=== PATIENT | female | born 1960 | race Caucasian/White ===

== ENCOUNTER 2019-10-19 20:06 | Emergency (ER) | payer BC, OTHER ==
[~2019-10-19] VITALS: Ht 165.1 cm; Wt 78.0 kg
[~2019-10-19 20:06] MED LIST: CYCL10TA2 PO; LORA10TA3 PO; OLME1TAB21 PO; OMEP40CA45 PO; OXYC1TAB22 PO; PROM25TA10 PO; RANI-376 PO; VALS1TAB3 PO
--- NOTE | 2019-10-19 20:32 | PHYS DOC ---
Past Medical History Past Medical History: GERD Past Surgical History: , Hysterectomy, Other Additional Past Surgical Histo: left arm and elbow surgery, right wrist, back Smoking Status: Current Every Day Smoker Alcohol Use: None Drug Use: None General Adult EDM: Chief Complaint: MECHANICAL FALL HPI: HPI: Patient is a 59 year old presents [facility] by EMS as a trauma alert. Patient was found by significant under at the bottom of stairs. Patient was found unconscious. Patient admits to drinking. She does not recall what happened. states it appears patient walked up 2 flights of steps and fell back hit her head on the concrete floor. On exam patient is currently alert and oriented x4. Again she does not recall what happened. She admits to drinking today. Patient has 4 cm laceration to the posterior scalp. She has some C-spine and thoracic midline tenderness. There are no obvious deformities of bilateral upper and lower extremities. There is a contusion on patient's left hand. Review of Systems: Review of Systems: Constitutional: Denies fever or chills. [] Eyes: Denies change in visual acuity. [] HENT: Denies nasal congestion or sore throat. [] Respiratory: Denies cough or shortness of breath. [] Cardiovascular: Denies chest pain or edema. [] GI: Denies abdominal pain, nausea, vomiting, bloody stools or diarrhea. [] : Denies dysuria. [] Musculoskeletal: Positive back pain positive hand pain Integument: Denies rash. [] Positive laceration positive contusion Neurologic: POSITIVE headache, deneis focal weakness or sensory changes. [] Endocrine: Denies polyuria or polydipsia. [] Lymphatic: Denies swollen glands. [] Psychiatric: Denies depression or anxiety. [] Heart Score: Risk Factors: Risk Factors: DM, Current or recent (<one month) smoker, HTN, HLP, family history of CAD, obesity. Risk Scores: Score 0 - 3: 2.5% MACE over next 6 weeks - Discharge Home Score 4 - 6: 20.3% MACE over next 6 weeks - Admit for Clinical Observation Score 7 - 10: 72.7% MACE over next 6 weeks - Early Invasive Strategies Allergies: Allergies: Allergies Coded Allergies Type Severity Reaction Last Updated Verified levofloxacin Allergy Severe face turned red and skin peeled off 06/07/15 Yes pepper Allergy Intermediate Nausea and Vomiting 06/07/15 Yes codeine Adverse Reaction Intermediate N/V 06/07/15 Yes Physical Exam: PE: Constitutional: Well developed, well nourished, no acute distress, non-toxic appearance. [] HENT: Normocephalic, contusion/laceration posterior [id number] laceration, bilateral external ears normal, nose normal, dried blood mouth and teeth, patient states teeth align properly, no active oral bleeding, no source found [] Eyes: EOMI, conjunctiva normal, no discharge. [] Neck: Normal range of motion, no tenderness, supple, tender to palpation c5-c6 mind line Cardiovascular:Heart rate regular rhythm, Lungs & Thorax: no respiratory distress, no chest wall pain Abdomen: abdomen soft, no bound or guarding Skin: Ecchymosis right hand over, laceration posterior scalp Back: tenderness midline T2-4 Extremities: No tenderness, no cyanosis, no clubbing, ROM intact, no edema. [] Neurologic: Alert and oriented X 3, normal motor function, normal sensory function, no focal deficits noted. [] Psychologic: Affect normal, judgement normal, mood normal. [] EKG: EKG: [] Radiology/Procedures: Radiology/Procedures: [] Impression: Left hand x-rays 3 views HISTORY: Left hand injury and bruising. FINDINGS: No fracture. No dislocation. Small bone island at the base of the fifth distal phalanx. Soft tissues are unremarkable. IMPRESSION: No acute osseous injury. Electronically signed by: Nabeel Stringer MD (10/19/2019 9:37 PM) [facility] [place] Exam: CT head, cervical and thoracic spine INDICATION: Fall downstairs TECHNIQUE: Sequential axial images through the head, cervical and thoracic spine were obtained without the administration of IV contrast. Comparisons: None FINDINGS: Head: No focal parenchymal lesion or hemorrhage is identified. There is no midline shift or sulcal effacement. No acute vascular territory infarction is identified. Pandey-white distinction is preserved. The ventricular system is within normal limits without compression hydrocephalus. The basal cisterns are well maintained. Extra cranial soft tissue scalp contusion/hematoma in the right occipital region without underlying osseous or intracranial abnormality. The visualized portions of the paranasal sinuses and mastoid air cells are well-pneumatized. No acute fractures. Cervical spine: Vertebral body heights and alignment are well-maintained. Fracture through the cervical spine is not identified. Mild degenerative disc disease greatest at C5-C6. Mild bilateral arthropathy is noted predominantly at C3-C4. Visualized paraspinal soft tissues are unremarkable. Thoracic spine: Vertebral body heights and alignment are well-maintained. Fracture to the thoracic spine is not identified. No significant spondylotic change in the thoracic spine. Visualized soft tissues are unremarkable. IMPRESSION: 1. Extra cranial soft tissue contusion/hematoma in the right occipital region without underlying osseous or intracranial abnormality. 2. Negative CT C-spine for acute traumatic injury. 3. Negative CT thoracic spine for acute traumatic injury. Exposure: One or more of the following in the visualized dose reduction techniques were utilized for this examination: 1. Automated exposure control 2. Adjustment of the MA and/or KV according to patient size Use of iterative of reconstructive technique Course & Med Decision Making: Course & Med Decision Making Pertinent Labs and Imaging studies reviewed. (See chart for details) [] Patient was evaluated for chief complaint. Work-up consisted of laboratory analysis and radiologic imaging. Results reviewed and discussed with patient and family. CT head CT cervical spine CT thoracic spine and x-ray of hand negative for acute traumatic injury. Patient with 4 cm laceration posterior scalp. Wound was clean breana placed total of 7 breana. Wound was cleaned with normal saline and hydrogen peroxide. Dragon Disclaimer: Dragon Disclaimer: This electronic medical record was generated, in whole or in part, using a voice recognition dictation system. Departure Departure Impression: Primary Impression: Alcohol intoxication Additional Impressions: Fall Head injury Disposition: 01 HOME, SELF-CARE Condition: STABLE Referrals: SAMANTA MCCOY MD (PCP) Patient Instructions: Alcohol Intoxication, Facial or Scalp Contusion, Head Injury, Adult, Laceration Care, Adult Scripts Tramadol Hcl (ULTRAM) 50 Mg Tablet 1 TAB PO PRN TID PRN for pain MDD 3 Tablet(s), #20 TAB 0 Refills Prov: MARGARITA SUH DO 10/19/19 Justicifation of Admission Dx: Justifications for Admission: Justification of Admission Dx: N/A MARGARITA SUH DO Oct 19, 2019 20:32
[2019-10-19 20:43] LABS: HEMATOCRIT 36.3 % (36.0-47.0); HEMOGLOBIN 12.5 g/dL (12.0-15.5); MEAN CORPUSCULAR HEMOGLOBIN 30 pg (25-35); MEAN CORPUSCULAR HGB CONC 34 g/dL (31-37); MEAN CORPUSCULAR VOLUME 86 fL (79-100); PLATELET COUNT 267 x10^3/uL (140-400); RED BLOOD COUNT 4.23 x10^6/uL (3.50-5.40); RED CELL DISTRIBUTION WIDTH 13.7 % (11.5-14.5)
[2019-10-19 20:44] LABS: BASO # 0.1 x10^3/uL (0.0-0.2); BASO % 1 % (0-3); EOS # 0.2 x10^3/uL (0.0-0.7); EOS % 2 % (0-3); LYMPH # 1.7 x10^3/uL (1.0-4.8); LYMPH % 19 % (24-48); MONO # 0.5 x10^3/uL (0.0-1.1); MONO % 6 % (0-9); NEUT # 6.5 x10^3/uL (1.8-7.7); NEUT % 72 % (31-73)
--- NOTE | 2019-10-19 20:57 | RAD ---
Exam: CT head, cervical and thoracic spine INDICATION: Fall downstairs TECHNIQUE: Sequential axial images through the head, cervical and thoracic spine were obtained without the administration of IV contrast. Comparisons: None FINDINGS: Head: No focal parenchymal lesion or hemorrhage is identified. There is no midline shift or sulcal effacement. No acute vascular territory infarction is identified. Pandey-white distinction is preserved. The ventricular system is within normal limits without compression hydrocephalus. The basal cisterns are well maintained. Extra cranial soft tissue scalp contusion/hematoma in the right occipital region without underlying osseous or intracranial abnormality. The visualized portions of the paranasal sinuses and mastoid air cells are well-pneumatized. No acute fractures. Cervical spine: Vertebral body heights and alignment are well-maintained. Fracture through the cervical spine is not identified. Mild degenerative disc disease greatest at C5-C6. Mild bilateral arthropathy is noted predominantly at C3-C4. Visualized paraspinal soft tissues are unremarkable. Thoracic spine: Vertebral body heights and alignment are well-maintained. Fracture to the thoracic spine is not identified. No significant spondylotic change in the thoracic spine. Visualized soft tissues are unremarkable. IMPRESSION: 1. Extra cranial soft tissue contusion/hematoma in the right occipital region without underlying osseous or intracranial abnormality. 2. Negative CT C-spine for acute traumatic injury. 3. Negative CT thoracic spine for acute traumatic injury. Exposure: One or more of the following in the visualized dose reduction techniques were utilized for this examination: 1. Automated exposure control 2. Adjustment of the MA and/or KV according to patient size Use of iterative of reconstructive technique Electronically signed by: Medina Galvan MD (10/19/2019 8:54 PM) [id number]
[2019-10-19 21:02] LABS: PROTHROMBIN TIME PATIENT 12.8 SEC (11.7-14.0)
[2019-10-19 21:17] LABS: ALBUMIN 3.9 g/dL (3.4-5.0); ALBUMIN/GLOBULIN RATIO 1.1 (1.0-1.7); CALCIUM 8.7 mg/dL (8.5-10.1); CREATININE 0.9 mg/dL (0.6-1.0); GFR 64.1; TOTAL BILIRUBIN 0.2 mg/dL (0.2-1.0); TOTAL PROTEIN 7.3 g/dL (6.4-8.2)
[2019-10-19 21:18] LABS: POTASSIUM 3.7 mmol/L (3.5-5.1)
--- NOTE | 2019-10-19 21:40 | RAD ---
Left hand x-rays 3 views HISTORY: Left hand injury and bruising. FINDINGS: No fracture. No dislocation. Small bone island at the base of the fifth distal phalanx. Soft tissues are unremarkable. IMPRESSION: No acute osseous injury. Electronically signed by: Nabeel Stringer MD (10/19/2019 9:37 PM) [facility]
[2019-10-19] MEDS ORDERED: TRAM-48 PO (22:09)
[2019-10-19 22:21] VITALS: BP 134/81
== END 2019-10-19 22:28 | disposition home or self-care (01) ==
LOC: ER 20:06
DX: S01.01XA Laceration without foreign body of scalp, initial encounter (principal); S60.222A Contusion of left hand, initial encounter; F10.229 Alcohol dependence with intoxication, unspecified; K21.9 Gastro-esophageal reflux disease without esophagitis; F17.200 Nicotine dependence, unspecified, uncomplicated; Z90.710 Acquired absence of both cervix and uterus; Z98.890 Other specified postprocedural states; Z88.5 Allergy status to narcotic agent; Z88.8 Allergy status to other drugs, medicaments and biological substances; Z91.018 Allergy to other foods; W18.39XA Other fall on same level, initial encounter; Y93.89 Activity, other specified; Y92.89 Other specified places as the place of occurrence of the external cause; Y99.8 Other external cause status
CPT/HCPCS: 12002; 36415; 70450; 72125; 72128; 73130; 80053; 85025; 85610; 85730; 99285; G0480